=== PATIENT | male | born 1950 | race Caucasian/White ===

== ENCOUNTER 2024-09-23 12:18 | Emergency (ER) | payer MEDICARE ==
[~2024-09-23] VITALS: Ht 170.2 cm; Wt 88.5 kg
[~2024-09-23 12:18] MED LIST: ATENOLOL50 MG PO; ESIDRIX25 MG PO; FAMOTIDINE20 MG PO; LEVAQUIN500 MG PO; METFORMIN HCL500 MG PO; TESSALON PERLE100 MG PO; ULTRAM50 MG PO
[2024-09-23 13:36] LABS: BASOPHILS % 0.8 % (0.0-1.0); EOSINOPHILS % 2.5 % (0.0-6.0); LYMPHOCYTES % 21.5 % (18.0-39.1); MONOCYTES % 9.8 % (4.4-11.3); NEUTROPHILS % 65.1 % (38.7-80.0); RED CELL DISTRIBUTION WIDTH 13.1 % (11.7-14.4)
[2024-09-23 13:47] LABS: INR 0.96
[2024-09-23 13:54] LABS: EST GLOMERULAR FILTRATION RATE 92.0 ML/MIN (>=60)
[2024-09-23 14:57] LABS: LEUKOCYTE ESTERASE ,URINE NEGATIVE (NEGATIVE); PROTEIN,URINE DIPSTICK 2+ (NEGATIVE); URINE UROBILINOGEN 4 mg/dL (0.2 - 1)
[2024-09-23 14:58] LABS: WBC,URINE (MAN) 0-5 /HPF (0-5)
[2024-09-23] MEDS ORDERED: BENICAR HCT 401 EACH PO (16:04)
[2024-09-23] MEDS ORDERED: METFORMIN HCL500 MG PO (16:04)
[2024-09-23 16:18] VITALS: BP 210/94
[2024-09-23] MEDS: HYDRALAZINE HCL 20 MG/ML VIAL IV STA (16:18)
[2024-09-23 16:44] VITALS: PULSE 63; RESP 17; TEMP 98.5; O2SAT 98
== END 2024-09-23 16:47 | disposition home or self-care (01) ==
LOC: ER 12:51
DX: I10 Essential (primary) hypertension (principal); E11.65 Type 2 diabetes mellitus with hyperglycemia; Z91.148 Patient's other noncompliance with medication regimen for other reason; R26.89 Other abnormalities of gait and mobility; M79.89 Other specified soft tissue disorders
CPT/HCPCS: 36415; 70450; 71045; 72125; 80053; 81001; 82550; 83735; 83880; 84484; 85025; 85610; 85730; 93005; 99284; J0360